=== PATIENT | male | born 1965 | race Caucasian/White ===

== ENCOUNTER 2022-01-05 07:03 | Outpatient (CLI) | payer OTHER, SELFPAY ==
--- NOTE | ~2022-01-05 | XR_ITS ---
EXAMINATION: XR cervical spine 4-5V DATE: 01/05/2022 07:19 INDICATION: Right neck pain. TECHNIQUE: 5 views of cervical spine were obtained. COMPARISON: None. FINDINGS: There is 8 degrees levocurvature of cervicothoracic spine. There is mild kyphosis of lower cervical spine. Vertebral body heights are normal. There is moderately decreased disc height at C5-C6 and severely decreased disc height at C6-C7. At C5-C6, there is mild right and moderate left uncover tebral joint osteoarthritis. At C6-C7, there is severe bilateral uncovertebral joint osteoarthritis. There is multilevel mild facet joint osteoarthritis. There is mild central canal stenosis at C5-C6 an d C6-C7. No prevertebral soft tissue swelling. IMPRESSION: 1. Severe cervical spondylosis. Reviewed, dictated and finalized at location A.
== END 2022-01-05 07:04 ==
PROVIDERS: PCP Family Medicine; Visit Provider Chiropractor
DX: M54.2 Cervicalgia (principal); M43.02 Spondylolysis, cervical region
CPT/HCPCS: 72050

== ENCOUNTER 2022-01-05 16:30 | Emergency (ER) | payer OTHER, SELFPAY ==
--- NOTE | ~2022-01-05 | XR_ITS ---
EXAMINATION: XR ankle LT min 3V DATE: 01/05/2022 16:59 INDICATION: Left ankle injury. Fall. TECHNIQUE: 4 views of left ankle were obtained. COMPARISON: None. FINDINGS: Bone alignment is normal. No fracture. There is mild osteoarthritis of talonavicular joint. There is ankle soft tissue swelling. IMPRESSION: 1. No fracture. Reviewed, dictated and finalized at location A. IMPRESSION: 1. No fracture.
[2022-01-05 16:44] VITALS: BP 137/89; PULSE 88; RESP 16; TEMP 36.8; O2SAT 100
--- NOTE | 2022-01-05 17:20 | ED.LOWEXIN ---
HPI - Extremity Injury (Lower) General Chief Complaint: Extremity Injury, Lower <Lola Starks PA-C - Last Filed: 01/05/22 17:26> Stated Complaint: fall with ankle and foot injury <Lola Starks PA-C - Last Filed: 01/05/22 17:26> Time Seen by Provider: 01/05/22 17:08 <Lola Starks PA-C - Last Filed: 01/05/22 17:26> Source: patient <Lola Starks PA-C - Last Filed: 01/05/22 17:26> Mode of arrival: wheelchair <TAVARES Darden Last Filed: 01/05/22 17:26> Limitations: no limitations <Lola Starks PA-C - Last Filed: 01/05/22 17:26> History of Present Illness HPI Narrative: This is a 56-year-old male that presents emergency department for left ankle injury sustained just prior to arrival. Reports he was started on a stool and it buckled from underneath him. This caused him to fall forward and twisted his ankle. Reports bruising and swelling. He did not hit his head or lose consciousness. No other injuries. Denies decreased range of motion or numbness. <Lola Starks PA-C - Last Filed: 01/05/22 17:26> Related Data Allergies/Adverse Reactions: Allergies Allergy/AdvReac Type Severity Reaction Status Date / Time varenicline Allergy Intermediate PSYCHOTIC Verified 01/05/22 16:46 EPISODES codeine Allergy Unknown HIVES Verified 01/05/22 16:46 prednisone Allergy Fever Verified 01/05/22 16:46 <Lola Starks PA-C - Last Filed: 01/05/22 17:26> Review of Systems Review of Systems: CONSTITUTIONAL: Denies fever MUSCULOSKELETAL: Reports joint pain, and myalgia. NEUROLOGIC: Denies numbness, or weakness. <TAVARES Darden Last Filed: 01/05/22 17:26> All systems reviewed & are unremarkable except as noted in HPI and below <TAVARES Darden Last Filed: 01/05/22 17:26> [facility] Past Medical History Medical History: Medical History (Updated 10/26/22 @ 17:25 by Lola Starks PA-C) No active medical problems <Lola Starks PA-C - Last Filed: 01/05/22 17:26> Social History Social History: Social History (Updated 01/05/22 @ 17:22 by Lola Starks PA-C) Substance use: never <Lola Starks PA-C - Last Filed: 01/05/22 17:26> Exam Narrative: GENERAL: Well-appearing, well-nourished, and in no acute distress. HEAD: Normocephalic, atraumatic. EYES: EOMI. EXTREMITIES: Normal range of motion. Moderate edema and bruising over the left foot and medial ankle. Normal DP pulse. Normal sensation SKIN: Warm, dry, no rash. NEURO: No focal deficits. Alert and oriented x3. PSYCH: Normal mood and affect <Lola Starks PA-C - Last Filed: 01/05/22 17:26> Course EPIC PROFESSIONAL/PA Physician Supervision For this patient encounter, I reviewed the EPIC PROFESSIONAL or PA documentation, treatment plan, and medical decision making <Randall Ingram MD - Last Filed: 01/05/22 21:38> Vital Signs Vital signs: Vital Signs Temperature 98.2 F 01/05/22 16:44 Pulse Rate 88 01/05/22 16:44 Respiratory Rate 16 01/05/22 16:44 Blood Pressure 137/89 01/05/22 16:44 Pulse Oximetry 100 01/05/22 16:44 Temperature 98.2 F 01/05/22 16:44 Pulse Rate 83 01/05/22 17:32 Respiratory Rate 16 01/05/22 17:32 Blood Pressure 135/90 01/05/22 17:32 Pulse Oximetry 99 01/05/22 17:32 <Lola Starks PA-C - Last Filed: 01/05/22 17:26> Vital Signs Temperature 98.2 F 01/05/22 16:44 Pulse Rate 88 01/05/22 16:44 Respiratory Rate 16 01/05/22 16:44 Blood Pressure 137/89 01/05/22 16:44 Pulse Oximetry 100 01/05/22 16:44 Temperature 98.2 F 01/05/22 16:44 Pulse Rate 83 01/05/22 17:32 Respiratory Rate 16 01/05/22 17:32 Blood Pressure 135/90 01/05/22 17:32 Pulse Oximetry 99 01/05/22 17:32 <Randall Ingram MD - Last Filed: 01/05/22 21:38> Procedures Orthopedic Splinting/Casting Injury #1: Splinting/Casting Date: 01/05/22 <Lola Starks PA-C - Last Filed: 01/05/22 17:26> S
[2022-01-05 17:32] VITALS: BP 135/90; PULSE 83; RESP 16; O2SAT 99
== END 2022-01-05 17:57 | disposition home or self-care (01) ==
LOC: ANHED 17:35
PROVIDERS: Emergency Provider Emergency Medicine; PCP Family Medicine
DX: S92.332A Displaced fracture of third metatarsal bone, left foot, initial encounter for closed fracture (principal); W07.XXXA Fall from chair, initial encounter
CPT/HCPCS: 29515; 73610; 99284

== ENCOUNTER 2022-01-08 12:29 | Outpatient (CLI) | payer OTHER, SELFPAY ==
--- NOTE | ~2022-01-08 | CT_ITS ---
EXAMINATION: CT foot LT wo con DATE: 01/08/2022 13:12 INDICATION: Left foot fracture TECHNIQUE: Computed tomography (CT) of the left foot was performed without intravenous contrast. The dose-length product was 521.74 mGy-cm. Automated exposure control and iterative reconstruction techni que were employed. COMPARISON: Left ankle series dated 01/05/2022 FINDINGS: There is a minimally displaced fracture of the inferior aspect of the talus at the subtalar joint extending laterally. There is a comminuted intra-articular fracture of the cuboid bone. There is a minimally displaced intra-articular fracture of the proximal aspect of the second metatarsal. Th ere is a comminuted displaced fracture of the proximal aspect of the third metatarsal. There is moder ate diffuse soft tissue swelling with subcutaneous edema. IMPRESSION: 1. Multiple fractures of the left foot including the talus, cuboid bone, second metatarsal and third metatarsal. Reviewed, dictated and finalized at location A.
== END 2022-01-08 12:30 | disposition home or self-care (01) ==
LOC: ANHIMG 12:32
PROVIDERS: PCP Family Medicine; Visit Provider Orthopaedic Surgery
DX: S92.302A Fracture of unspecified metatarsal bone(s), left foot, initial encounter for closed fracture (principal); X58.XXXA Exposure to other specified factors, initial encounter
CPT/HCPCS: 73700